=== PATIENT | female | born 1955 | race Caucasian/White ===

== ENCOUNTER → 2017-06-12 | Outpatient (CLI) | payer OTHER | LOC: M ADAMS 12:49 | PROVIDERS: ATTEND Physician Assistant Medical | DX: N30.01 Acute cystitis with hematuria (principal) ==

== ENCOUNTER → 2018-01-22 | Outpatient (REF) | payer OTHER ==
[2018-01-22 13:08] LABS: BASO # 0.1 10^3/uL (0.0-0.2); EOS # 0.3 10^3/uL (0.0-0.50); EOS % 3.9 % (0.0-3.0); HEMATOCRIT 36.5 % (36.0-47.0); HEMOGLOBIN 12.3 g/dl (12.0-15.5); IMMATURE GRANULOCYTE % 0.3 % (0-3.0); LYMPH # 2.2 10^3/uL (1.5-4.5); LYMPH % 30.2 % (24.0-44.0); MEAN CORPUSCULAR HGB CONC 33.7 g/dl (32.0-36.5); MEAN CORPUSCULAR VOLUME 91.9 fl (80.0-96.0); MONO # 0.5 10^3/uL (0.0-0.8); MONO % 6.9 % (0.0-5.0); NEUTROPHILS # 4.1 10^3/uL (1.8-7.7); NEUTROPHILS % 57.7 % (36.0-66.0); PLATELET COUNT, AUTOMATED 310 10^3/uL (150-450); RED BLOOD COUNT 3.97 10^6/uL (4.00-5.40); RED CELL DISTRIBUTION WIDTH 13.1 % (11.5-14.5); WHITE BLOOD COUNT 7.1 10^3/uL (4.0-10.0)
[2018-01-22 13:41] LABS: ALBUMIN 3.6 GM/DL (3.2-5.2); ALBUMIN/GLOBULIN RATIO 1.09 (1.00-1.93); ALKALINE PHOSPHATASE 95 U/L (45-117); ALT/SGPT 18 U/L (12-78); ANION GAP 7 MEQ/L (8-16); AST/SGOT 15 U/L (7-37); BILIRUBIN,TOTAL 0.3 MG/DL (0.2-1.0); BLOOD UREA NITROGEN 23 MG/DL (7-18); CARBON DIOXIDE LEVEL 29 MEQ/L (21-32); CHLORIDE LEVEL 108 MEQ/L (98-107); CHOLESTEROL LEVEL 264 MG/DL (<200); CHOLESTEROL RISK RATIO 2.613 (<5); CREATININE FOR GFR 0.76 MG/DL (0.55-1.30); GLOMERULAR FILTRATION RATE > 60.0 (>45); GLUCOSE, FASTING 85 MG/DL (70-100); HDL CHOLESTEROL 101 MG/DL (>40); LDL CHOLESTEROL 151.8 MG/DL (<100); NON-HDL-C 163 MG/DL; POTASSIUM SERUM 4.9 MEQ/L (3.5-5.1); SODIUM LEVEL 144 MEQ/L (136-145); TOTAL PROTEIN 6.9 GM/DL (6.4-8.2); TRIGLYCERIDES LEVEL 56 MG/DL (<150)
== END ==
LOC: M SFHCADAM 10:53
DX: Z00.00 Encounter for general adult medical examination without abnormal findings (principal)

== ENCOUNTER → 2018-03-04 | Outpatient (REF) | payer OTHER ==
[2018-03-05 14:38] LABS: HEP C VIRUS AB SCREEN MEDICARE 0.1 INDEX (<0.8)
== END ==
LOC: M SFHCADAM 17:24
DX: Z11.59 Encounter for screening for other viral diseases (principal)

== ENCOUNTER → 2018-09-01 | Outpatient (REF) | payer OTHER ==
[2018-09-01 20:24] LABS: BASO # 0.1 10^3/uL (0.0-0.2); BASO % 0.7 % (0.0-1.0); EOS # 0.3 10^3/uL (0.0-0.50); EOS % 3.7 % (0.0-3.0); HEMATOCRIT 40.3 % (36.0-47.0); HEMOGLOBIN 13.6 g/dl (12.0-15.5); LYMPH # 2.3 10^3/uL (1.5-4.5); LYMPH % 31.2 % (24.0-44.0); MEAN CORPUSCULAR HEMOGLOBIN 30.9 pg (27.0-33.0); MEAN CORPUSCULAR HGB CONC 33.7 g/dl (32.0-36.5); MEAN CORPUSCULAR VOLUME 91.6 fl (80.0-96.0); MONO # 0.5 10^3/uL (0.0-0.8); MONO % 7.2 % (0.0-5.0); NEUTROPHILS # 4.1 10^3/uL (1.8-7.7); NEUTROPHILS % 56.9 % (36.0-66.0); PLATELET COUNT, AUTOMATED 389 10^3/uL (150-450); WHITE BLOOD COUNT 7.3 10^3/uL (4.0-10.0)
[2018-09-01 20:32] LABS: ALBUMIN 3.9 GM/DL (3.2-5.2); ALT/SGPT 19 U/L (12-78); BILIRUBIN,TOTAL 0.3 MG/DL (0.2-1.0); BLOOD UREA NITROGEN 13 MG/DL (7-18); CALCIUM LEVEL 8.9 MG/DL (8.8-10.2); CARBON DIOXIDE LEVEL 28 MEQ/L (21-32); CHLORIDE LEVEL 105 MEQ/L (98-107); CREATININE FOR GFR 0.68 MG/DL (0.55-1.30); GLOMERULAR FILTRATION RATE > 60.0 (>45); GLUCOSE, FASTING 54 MG/DL (70-100); POTASSIUM SERUM 3.7 MEQ/L (3.5-5.1); SODIUM LEVEL 142 MEQ/L (136-145); TOTAL PROTEIN 7.4 GM/DL (6.4-8.2)
== END ==
LOC: M SFHCADAM 16:41
PROVIDERS: ATTEND Family Medicine
DX: R93.89 Abnormal findings on diagnostic imaging of other specified body structures (principal)

== ENCOUNTER → 2018-09-10 | Outpatient (CLI) | payer OTHER ==
[~2018-09-10] MED LIST: ISOVUE-370 76% 125ML VIAL (Q9967 PER ML) As Ordered ONE
--- NOTE | 2018-09-10 17:43 | REP ---
CT of the chest with IV contrast: Comparison is a 2017. The previously identified ground-glass density in the right upper lobe is no longer present, likely transient atelectasis. The 5.5 mm nodule in the right lower lobe is stable and unchanged and is on image 57. There are no other lung masses or nodule was. There are no acute infiltrates or pleural effusions. There is a soft tissue mass at the thoracic inlet, measuring approximately 22 mm transverse diameter by 30 mm craniocaudad posterolateral to the trachea on the left, left lateral to the esophagus, posterior to the left common carotid artery and medial to the left subclavian artery. This was likely present on the comparison study, but difficult to visualize as the comparison study was presented at lung windowing only. It does not appear significantly changed in size. Enlarged lymph node and thymoma are primary diagnostic considerations. There is no other mediastinal adenopathy or mass. There is no hilar or axillary adenopathy. The thoracic aorta is unremarkable. Cardiac size is normal. In the upper abdomen there is a 3.9 cm low-density mass posteriorly in the right lobe of the liver with enhancing vasculature at its periphery, possibly an hemangioma. MRI follow-up is recommended for confirmation. The visualized hepatic parenchyma is otherwise unremarkable. Visualized portions of the gallbladder, pancreas and spleen are unremarkable. There is no adrenal mass. Impression: The ground-glass density identified previously is no longer present, likely transient atelectasis. The 5.5 millimeter nodule in the right lower lobe is unchanged, therefore a category II lesion with probability of malignancy less than 1%. Annual follow-up surveillance of this nodule is recommended. There is a mediastinal mass as described. There is an hepatic mass as described. Electronically Signed by Shadi Green MD 09/10/2018 05:35 P
== END ==
LOC: M RAD 12:40
PROVIDERS: ATTEND Family Medicine
DX: R93.89 Abnormal findings on diagnostic imaging of other specified body structures (principal); R91.1 Solitary pulmonary nodule; R16.0 Hepatomegaly, not elsewhere classified
CPT/HCPCS: 71260; Q9967

== ENCOUNTER → 2019-04-14 | Outpatient (CLI) | payer OTHER ==
--- NOTE | 2019-04-14 07:54 | REP ---
Clinical: Hepatic hemangioma. Technique: Real time fountain scale ultrasound examination using curved array transducer. Findings: Liver demonstrates a 4.4 x 2.9 x 4.2 cm hyperechoic lesion in the posterior segment right lobe most compatible with hemangioma. Pancreas and gallbladder are normal. No biliary ductal dilatation is appreciated and the common bile duct measures 5.5 mm diameter. The right kidney is normal in reniform shape without hydronephrosis and measures 9.8 x 5.1 x 4.2 cm. Abdominal aorta normal. No ascites. Impression: Hepatic lesion most compatible with hemangioma by ultrasound evaluation. Electronically Signed by Horacio Rooney MD 04/14/2019 07:46 A
== END ==
LOC: M RAD 06:43
PROVIDERS: ATTEND Family Medicine
DX: K76.89 Other specified diseases of liver (principal); R10.11 Right upper quadrant pain

== ENCOUNTER 2019-08-18 11:18 | Day surgery (SDC) | payer OTHER ==
[~2019-08-18] VITALS: Ht 157.5 cm; Wt 52.6 kg
[~2019-08-18 11:18] MED LIST changes: -ISOVUE-370 76% 125ML VIAL (Q9967 PER ML) As Ordered ONE; +LIDOCAINE 2% INJ 100 MG/5 ML SDV (FOR ANES.) As Ordered ONE; +NON-325T5 PO; +NS 1,000 ML IV ONE
[2019-08-18] MEDS ORDERED: propofoL 200 MG/20 ML VIAL As Ordered ONE (11:28)
[2019-08-18] MEDS ORDERED: fentaNYL 100 MCG/2 ML INJECTION (J3010) As Ordered ONE (11:29)
--- NOTE | 2019-08-18 12:14 | ROOR ---
Patient Name: Joana Clements Procedure Date: 08/18/2019 12:02 PM Date of : 1955 Age: 63 Room: [facility] Gender: Female Note Status: Finalized Procedure: Upper GI endoscopy Indications: Epigastric abdominal pain Providers: Qasim PALOMARES MD Referring MD: Evita BRUCE DO Requesting Provider: Medicines: Monitored Anesthesia Care Complications: No immediate complications. Procedure: Pre-Anesthesia Assessment: - The heart rate, respiratory rate, oxygen saturations, blood pressure, adequacy of pulmonary ventilation, and response to care were monitored throughout the procedure. The Endoscope was introduced through the mouth, and advanced to the second part of duodenum. The upper GI endoscopy was accomplished without difficulty. The patient tolerated the procedure well. Findings: The esophagus was normal. The stomach was normal. The examined duodenum was normal. Impression: - Normal esophagus. - Normal stomach. - Normal examined duodenum. - No specimens collected. Recommendation: - Follow an antireflux regimen. - Observe patient's clinical course. Qasim Palomares MD Qasim PALOMARES MD 08/18/2019 12:14:11 PM Electronically signed by Qasim PALOMARES MD Number of Addenda: 0 Note Initiated On: 08/18/2019 12:02 PM Estimated Blood Loss: Estimated blood loss: none.
--- NOTE | 2019-08-18 12:37 | ROOR ---
Patient Name: Joana Clements Procedure Date: 08/18/2019 12:02 PM Date of : 1955 Age: 63 Room: [facility] Gender: Female Note Status: Finalized Procedure: Colonoscopy Indications: High risk colon cancer surveillance: Personal history of colonic polyps Providers: Qasim PALOMARES MD Referring MD: Evita BRUCE DO Requestcale[employer] Provider: Medicines: Monitored Anesthesia Care Complications: No immediate complications. Procedure: Pre-Anesthesia Assessment: - The heart rate, respiratory rate, oxygen saturations, blood pressure, adequacy of pulmonary ventilation, and response to care were monitored throughout the procedure. The Colonoscope was introduced through the anus and advanced to the cecum, identified by appendiceal orifice and ileocecal valve. The colonoscopy was performed without difficulty. The patient tolerated the procedure well. The quality of the bowel preparation was good. Findings: The perianal and digital rectal examinations were normal. Two sessile polyps were found in the sigmoid colon and hepatic flexure. The polyps were 4 to 5 mm in size. These polyps were removed with a cold snare. Resection and retrieval were complete. Small Internal Hemorrhoids. The digital rectal exam findings include decreased sphincter tone. Impression: - Two 4 to 5 mm polyps in the sigmoid colon and at the hepatic flexure, removed with a cold snare. Resected and retrieved. - Small Internal Hemorrhoids. - The examination was otherwise normal on direct and retroflexion views. Recommendation: - Repeat colonoscopy in 5 years for surveillance. Qasim Palomarse MD Qasim PALOMARES MD 08/18/2019 12:36:44 PM Electronically signed by Qasim PALOMARES MD Number of Addenda: 0 Note Initiated On: 08/18/2019 12:02 PM Estimated Blood Loss: Estimated blood loss: none.
[2019-08-18 13:00] VITALS: BP 150/76
== END 2019-08-18 13:10 | disposition home or self-care (01) ==
LOC: M OPP 11:18
PROVIDERS: ATTEND Internal Medicine Gastroenterology
DX: Z12.11 Encounter for screening for malignant neoplasm of colon (principal); Z86.010 Personal history of colon polyps; K63.5 Polyp of colon; K62.89 Other specified diseases of anus and rectum; K64.8 Other hemorrhoids; R10.13 Epigastric pain; Z79.899 Other long term (current) drug therapy; Z91.030 Bee allergy status; Z87.891 Personal history of nicotine dependence
CPT/HCPCS: 43235; 45385; 88305; J3010

== ENCOUNTER → 2019-12-01 | Outpatient (CLI) | payer OTHER ==
[~2019-12-01] MED LIST changes: -LIDOCAINE 2% INJ 100 MG/5 ML SDV (FOR ANES.) As Ordered ONE; -NS 1,000 ML IV ONE
--- NOTE | 2019-12-01 17:10 | REP ---
REASON: Pain. Mild degenerative changes are seen throughout the foot. There is no fracture. Electronically Signed by Jeffrey Wade DO 12/02/2019 11:12 A
--- NOTE | 2019-12-01 17:11 | REP ---
ANKLE: REASON FOR EXAM: Atraumatic pain. COMPARISON: No priors. FINDINGS: No acute fracture or destructive osseous lesion. The mortise is intact. Electronically Signed by Jeffrey Wade DO 12/02/2019 11:12 A
== END ==
LOC: M ADAMS 09:17
PROVIDERS: ATTEND Physician Assistant
DX: M25.572 Pain in left ankle and joints of left foot (principal); M19.072 Primary osteoarthritis, left ankle and foot

== ENCOUNTER 2019-12-20 13:17 | Emergency (ER) | payer OTHER ==
[~2019-12-20] VITALS: Ht 154.9 cm; Wt 53.2 kg
[2019-12-20 14:48] LABS: BLOOD UREA NITROGEN 24 MG/DL (7-18); CALCIUM LEVEL 9.6 MG/DL (8.8-10.2); CARBON DIOXIDE LEVEL 28 MEQ/L (21-32); CHLORIDE LEVEL 109 MEQ/L (98-107); CK-MB VALUE MASS 2.2 NG/ML (<3.6); CPK CREATINE PHOSPHOKINASE 101 U/L (26-192); CREATININE FOR GFR 0.74 MG/DL (0.55-1.30); GLOMERULAR FILTRATION RATE > 60.0 (>45); GLUCOSE, FASTING 79 MG/DL (70-100); MB/CK RELATIVE INDEX 2.18 (< OR =4); POTASSIUM SERUM 4.7 MEQ/L (3.5-5.1); SODIUM LEVEL 142 MEQ/L (136-145); TROPONIN I < 0.02 NG/ML (< 0.10)
[2019-12-20] MEDS ORDERED: NS 1,000 ML IV ONE (15:00)
[2019-12-20 15:56] VITALS: BP 159/85
--- NOTE | 2019-12-21 09:36 | ECGEPIP ---
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
== END 2019-12-20 15:58 | disposition home or self-care (01) ==
LOC: EDBD 13:17 → M ED 13:17
DX: T75.4XXA Electrocution, initial encounter (principal); Y92.89 Other specified places as the place of occurrence of the external cause; Y93.89 Activity, other specified; R00.1 Bradycardia, unspecified

== ENCOUNTER → 2020-05-23 | Outpatient (CLI) | payer OTHER ==
[~2020-05-23] MED LIST changes: +ACET-838 PO; -NON-325T5 PO
--- NOTE | 2020-05-23 09:00 | REP ---
INDICATION: HEMANGIOMA/ EPIGASTRIC PAIN COMPARISON: 04/14/2019 TECHNIQUE: Real time fountain scale ultrasound examination using curved array transducer. FINDINGS: Liver demonstrates 4.8 x 2.7 x 4.4 cm hyperechoic area in the posterior segment right lobe consistent with hemangioma. No further hepatic lesions are identified. Pancreas is incompletely evaluated due to interposed bowel gas. The gallbladder is normal and without gallstones, wall thickening, or pericholecystic fluid. No biliary ductal dilatation is appreciated and the common bile duct measures 4.0 mm diameter. Right kidney is normal in reniform shape without hydronephrosis and measures 9.5 x 3.8 x 3.6 cm. No ascites in the visualized right upper quadrant. Suggestions for small pericardial effusion incidentally noted. IMPRESSION: 1. Hyperdense hepatic lesion likely representing hemangioma and similar to prior examination. <Electronically signed by Horacio Rooney > 05/23/20 [id number]
== END ==
LOC: M RAD 07:44
PROVIDERS: ATTEND Internal Medicine Gastroenterology
DX: K76.89 Other specified diseases of liver (principal); D18.00 Hemangioma unspecified site; R10.13 Epigastric pain

== ENCOUNTER → 2020-06-19 | Outpatient (CLI) | payer OTHER ==
--- NOTE | 2020-06-19 13:50 | REP ---
INDICATION: LUNG SCREENING COMPARISON: 02/26/2018 TECHNIQUE: Axial noncontrast images from the thoracic inlet to the upper abdomen using low-dose lung screening technique (LDCT). FINDINGS: Lung pressley demonstrate minimal scattered and primarily biapical scarring similar to prior examination. Few small non calcified densities measuring up to 5 mm (right lower lobe image 56) as well as small calcified nodules remain stable. No consolidation, significant nodule or mass lesion identified. No pleural effusion. No pneumothorax. Tracheobronchial tree is patent. IMPRESSION: Lung-RADS category 2. Management recommendations include annual low-dose CT evaluation <Electronically signed by Horacio Rooney > 06/19/20 [id number]
== END ==
LOC: M RAD 12:58
PROVIDERS: ATTEND Family Medicine
DX: Z12.2 Encounter for screening for malignant neoplasm of respiratory organs (principal); R91.8 Other nonspecific abnormal finding of lung field

== ENCOUNTER → 2021-01-28 | Outpatient (CLI) | payer OTHER ==
[~2021-01-28] MED LIST changes: -ACET-838 PO; +ACET32TAB PO; +AUGM875T28 PO; +CARA1TAB6 PO; +OMEP40CA4 PO
== END ==
LOC: M WHC 14:24
PROVIDERS: ATTEND Family Medicine
DX: Z12.31 Encounter for screening mammogram for malignant neoplasm of breast (principal); Z80.0 Family history of malignant neoplasm of digestive organs; Z80.42 Family history of malignant neoplasm of prostate; R92.1 Mammographic calcification found on diagnostic imaging of breast

== ENCOUNTER 2021-05-25 17:55 | Inpatient (IN) | payer OTHER ==
[~2021-05-25] VITALS: Ht 154.9 cm; Wt 54.9 kg
[~2021-05-25 17:55] MED LIST changes: -AUGM875T28 PO; -CARA1TAB6 PO; -OMEP40CA4 PO
[2021-05-26 03:35] LABS: BASO # 0.1 10^3/uL (0.0-0.2); BASO % 0.2 % (0.0-1.0); HEMATOCRIT 41.6 % (36.0-47.0); HEMOGLOBIN 13.7 g/dl (12.0-15.5); LYMPH # 0.7 10^3/uL (1.5-5.0); LYMPH % 2.2 % (24.0-44.0); MEAN CORPUSCULAR HGB CONC 32.9 g/dl (32.0-36.5); MEAN CORPUSCULAR VOLUME 94.1 fl (80.0-96.0); MONO # 1.6 10^3/uL (0.0-0.8); MONO % 5.2 % (2.0-8.0); NEUTROPHILS # 28.3 10^3/uL (1.5-8.5); NEUTROPHILS % 91.3 % (36.0-66.0); PLATELET COUNT, AUTOMATED 393 10^3/uL (150-450); RED BLOOD COUNT 4.42 10^6/uL (4.00-5.40)
[2021-05-26 04:03] LABS: ALBUMIN 3.8 GM/DL (3.2-5.2); ALT/SGPT 19 U/L (12-78); BILIRUBIN,DIRECT 0.1 MG/DL (0.0-0.2); BILIRUBIN,TOTAL 0.4 MG/DL (0.2-1.0); BLOOD UREA NITROGEN 17 MG/DL (7-18); CALCIUM LEVEL 9.5 MG/DL (8.8-10.2); CARBON DIOXIDE LEVEL 25 MEQ/L (21-32); CHLORIDE LEVEL 105 MEQ/L (98-107); CREATININE FOR GFR 0.77 MG/DL (0.55-1.30); GLOMERULAR FILTRATION RATE > 60.0 (>45); GLUCOSE, FASTING 144 MG/DL (70-100); LIPASE 105 U/L (73-393); POTASSIUM SERUM 4.6 MEQ/L (3.5-5.1); SODIUM LEVEL 138 MEQ/L (136-145); TOTAL PROTEIN 7.8 GM/DL (6.4-8.2)
[2021-05-26] MEDS ORDERED: KETOROLAC 30 MG/ML 1ML VIAL IV ONE (06:55)
[2021-05-26] MEDS ORDERED: ONDANSETRON 4MG/2ML VIAL IV ONE (06:55)
[2021-05-26] MEDS ORDERED: NS 1,000 ML IV ONE (06:55)
[2021-05-26] MEDS ORDERED: ISOVUE-370 76% 100ML VIAL As Ordered ONE (07:02)
[2021-05-26] MEDS ORDERED: MORPHINE 4 MG/ML 1ML VIAL/SYRINGE (J2270) IV PRN (07:50)
--- OUTSIDE RECORDS SUMMARY | 2021-05-26 08:10 | CCD ---
Author Author [facility] Organization [facility] Address Unknown Phone Unavailable Support Name Relationship Address Phone BRYANT CHUNG Next Of Kin [address] [facility] [address] [place] [address] [facility] Next Of Kin [address] [place] [address] [facility] [address] Next Of Kin [phone] [place] [address] MARISOL CLEMENTS Next Of Kin [address] [place] [address] [place]* Next Of Kin [address] [place] [address] YOHANA CLEMENTS Next Of Kin [address] [place] [address] Marisol Clements ECON [address] [facility] [address] [place] [address] [phone] Re-disclosure Warning The records that you are about to access may contain information from federally-assisted alcohol or drug abuse programs. If such information is present, then the following federally mandated warning applies: This information has been disclosed to you from records protected by federal confidentiality rules (42 CFR part 2). The federal rules prohibit you from making any further disclosure of this information unless further disclosure is expressly permitted by the written consent of the person to whom it pertains or as otherwise permitted by 42 CFR part 2. A general authorization for the release of medical or other information is NOT sufficient for this purpose. The Federal rules restrict any use of the information to criminally investigate or prosecute any alcohol or drug abuse patient.The records that you are about to access may contain highly sensitive health information, the redisclosure of which is protected by Article 27-F of the [facility] Public Health law. If you continue you may have access to information: Regarding HIV / AIDS; Provided by facilities licensed or operated by the [facility] Office of Mental Health; or Provided by the [facility] Office for People With Developmental Disabilities. If such information is present, then the following [facility] mandated warning applies: This information has been disclosed to you from confidential records which are protected by state law. State law prohibits you from making any further disclosure of this information without the specific written consent of the person to whom it pertains, or as otherwise permitted by law. Any unauthorized further disclosure in violation of state law may result in a fine or long-term sentence or both. A general authorization for the release of medical or other information is NOT sufficient authorization for further disc losure. Family History Family Member Name Family Member Gender Family Member Status Date o f Status Description Data Source(s) Unknown Unknown Problem MEDENT ([facility]) Unknown Unknown Problem [facility] ([facility]) Unknown Unknown Problem [facility] Unknown Unknown Problem [facility] Unknown Unknown Problem [facility] ([facility] Encounters Encounter Providers Location Date Indications Data Source(s ) Unknown [address] [facility] [address] [place] [address] 02/08/2021 12:00:00 AM EDT eCW1 ([facility]) Outpatient [address] [facility] [address] [address] 12/21/2020 12:00:00 AM EDT eCW1 ([facility]) Unknown [address] [facility] [address] [address] 12/21/2020 12:00:00 AM EDT eCW1 ([facility]) Unknown [address] [facility] [address] [address] 06/11/2020 12:00:00 AM EST eCW1 ([facility]) Unknown [address] [facility] [address] [address] 05/10/2020 12:00:00 AM EST eCW1 ([facility]) Immunizations Vaccine Date Status Description Data Source(s) COVID-19 VACCINE Moderna 10/23/2020 12:00:00 AM EDT completed [facility] Vaccine Series Complete: YESThis Data wa s Submitted to [facility] Via [employer]. COVID-19 VACC,MRNA(MODERNA)/PF 09/22/2020 12:00:00 AM EDT completed [facility] COVID-19 VACCINE Moderna 09/22/2020 12:00:00 AM EDT completed [facility] Vaccine Series Complete: NOThis Data was Submitted to [facility] Via [employer]. INFLUENZA VIRUS VACCINE QUADRIVALENT 2019- (6 MOS AN D UP) 05/06/2020 12:00:00 AM EST completed [facility] Medications Medication Brand Name Start Date Product Form Dose Route Admi nistrative Instructions Pharmacy Instructions Status Indications Reaction Description Data Source(s) 60 mcg (15 mcg x 4)/0.5 mL 04/08/2021 12:00:00 AM EDT syring e 0 INJECT DIRECTED INJECT DIRECTED SOLD: 04/08/2021 Imag[facility] Insurance Providers Payer name Policy type / Coverage type Policy ID Covered green party ID Covered green party's relationship to albarran Policy Albarran Plan Information [id number] Medigap Part B [id number] Self [id number] [place] [employer] Workers Compensation [id number] Self [id number] [place] [employer] Workers Compensation [id number] Self N[employer] Workers Compensation [id number] Self [id number] [facility] Community Plan Commercial [id number] Self [id number] [facility] [id number] [facility] [id number] S 1 [id number] ANSI-Medicaid [id number] ANSI-Commercial [id number] ANSI-Medicaid [id number] ANSI-Commercial [id number] ANSI-Commercial [id number] ANSI-Medicaid [id number] ANSI-Medicaid [id number] ANSI-Commercial [id number] ANSI-Commercial [id number] ANSI-Medicaid [id number] [facility] [id number] ANSI-Medicaid [id number] ANSI-Commercial [id number] ANSI-Medicaid [id number] ANSI-Medicaid [id number] ANSI-Commercial [id number] OTHER WORKERS COMPENSATION [id number] SP [id number] [facility] Health Maintenance Organization ([facility]) [id number] Self [id number] [facility] Health Maintenance Organization ([facility]) [id number] Self [id number] [facility] Health Maintenance Organization ([facility]) [id number] Self [id number] [facility] Health Maintenance Organization ([facility]) [id number] Self [facility] Commercial [id number] Self SELF PAY UNAVAILABLE SP UNAVAILA BLE ANSI-Commercial [id number] [facility] COMMUNITY PLAN MCDO [id number] SP [id number] [facility]) O [id number] S [id number] [employer] CLAIM ADMIN WORK COMP [id number] SP [id number] [facility] [id number] SP [id number] ANSI-Commercial [id number] Problems, Conditions, and Diagnoses Code Display Name Description Problem Type Effective Dates Data Source(s) H91.93 [id number] Hearing difficulty of both ears Problem 12/21/2020 12:00:00 AM EDT eCW1 ([facility]) Surgeries/Procedures No Information Results No Information Social History Code Duration Value Status Description Data Source(s ) Smoking 02/15/2021 12:00:00 AM EDT Former Smoker completed Former Smoker eCW1 ([facility]) Smoking 12/21/2020 12:00:00 AM EDT Former Smoker completed Former Smoker eCW1 ([facility]) Smoking 12/21/2020 12:00:00 AM EDT Former Smoker completed Former Smoker eCW1 ([facility]) Vital Signs ID Date Data Source UNK Name Value Range Interpretation Code Description Data Source(s) Body weight 114.4 [lb_av] 114.4 [lb_av] eCW1 ([facility]) Body height 61.5 [in_i] 61.5 [in_i] eCW1 ([facility]placed by [facility]) Body mass index (BMI) [Ratio] 21.26 kg/m2 21.26 kg/m2 W1 ([facility]) Heart rate 63 /min 63 /min eCW1 ([facility]) Respiratory rate 18 /min 18 /min eCW1 ([facility]) Body temperature 99.0 [degF] 99.0 [degF] eCW1 ( [facility]) Systolic blood pressure 118 mm[Hg] 118 mm[Hg] e CW1 ([facility]) Diastolic blood pressure 72 mm[Hg] 72 mm[Hg] eCW1 ([facility]) Systolic blood pressure 140 mm[Hg] 140 mm[Hg] M EDENT ([facility], ) Diastolic blood pressure 82 mm[Hg] 82 mm[Hg] MEDGEM ([facility], ) Body height 62 [in_i] 62 [in_i] [facility] 5'2" Body weight 118.00 [lb_av] 118.00 [lb_av] [facility] ([facility]) Body mass index (BMI) [Ratio] 21.6 kg/m2 21.6 k g/m2 [facility] ([facility]) [place] body weight 110 [lb_av] 110 [lb_av] [facility] ([facility]) Body weight 53.525 kg 53.525 kg [facility] ([facility]) Body surface area Derived from formula 1.53 m2 1.53 m2 [facility] ([facility])
--- NOTE | 2021-05-26 08:25 | REPVR ---
PROCEDURE INFORMATION: Exam: CT Abdomen And Pelvis With Contrast Exam date and time: 05/26/2021 7:55 AM Age: 65 years old Clinical indication: Abdominal pain; Generalized; Additional info: Abd pain, peritonitis signs, leukocytosis TECHNIQUE: Imaging protocol: Computed tomography of the abdomen and pelvis with contrast. Radiation optimization: All CT scans at this facility use at least one of these dose optimization techniques: automated exposure control; mA and/or kV adjustment per patient size (includes targeted exams where dose is matched to clinical indication); or iterative reconstruction. Contrast material: ISOVUE 370; Contrast volume: 100 ml; Contrast route: INTRAVENOUS (IV); COMPARISON: LIVER US 05/23/2020 8:50 AM (report not provided) FINDINGS: Lungs: There are minor areas of scarring at the lung bases. Liver: The liver contains a 4.2 x 3.3 cm predominantly hypodense lesion in the right lobe with some peripheral nodular enhancement, corresponding to an echogenic lesion on the ultrasound, possibly hemangioma, but indeterminate. It also demonstrates mild fat along the falciform ligament. Gallbladder and bile ducts: No gallstones are evident, but ultrasound would be more sensitive. No gross biliary ductal dilatation. Pancreas: Normal. No ductal dilation. Spleen: Normal. No splenomegaly. Adrenal glands: Normal. No mass. Kidneys and ureters: Normal. No hydronephrosis. Stomach and bowel: The unopacified small bowel is not significantly distended to suggest obstruction. There is wall thickening involving the 2nd and 3rd portions of the duodenum with mild surrounding confluent fluid and fatty haziness. Along the medial aspect here is a collection of fluid and gas, apparently contiguous with the lumen, measuring approximately 2.6 x 3.7 x 3.0 cm, most suggestive of a contained perforation. There is no extension of extraluminal gas outside this collection. The large bowel is grossly unremarkable in appearance. Appendix: The appendix appears normal. Intraperitoneal space: No free air or significant free fluid. Vasculature: The abdominal aorta is nonaneurysmal. Atherosclerotic vascular calcifications are noted. Lymph nodes: Unremarkable. No enlarged lymph nodes. Urinary bladder: Unremarkable. Reproductive: No gross adnexal abnormality is apparent, but ultrasound would be more appropriate in this regard. Bones/joints: Degenerative changes involve the spine. Soft tissues: Unremarkable. IMPRESSION: 1. Wall thickening of the 2nd and 3rd portions of the duodenum with surrounding inflammatory change and contiguous with a collection of fluid and gas, suggestive of contained perforation. 2. 4.2 cm hepatic lesion, possibly hemangioma, but indeterminate. Recommend further evaluation with liver MRI. Electronically signed by: Shayne Bishop On 05/26/2021 08:24:42 AM
[2021-05-26] MEDS ORDERED: PIPERACILLIN/TAZOBACTAM SOD 3.375 GM in D5W MINI-BAG PLUS 50 ML IV ONE (08:55)
[2021-05-26] MEDS ORDERED: PANTOPRAZOLE 40MG VIAL (C9113 PER 1) IV SCH (09:00)
[2021-05-26 10:17] LABS: RSV AMPLIFICATION NEGATIVE (NEGATIVE)
[2021-05-26] MEDS ORDERED: MORPHINE 2 MG/ML 1ML VIAL (J2270) IV PRN ×2 (11:10)
--- OUTSIDE RECORDS SUMMARY | 2021-05-26 11:32 | CCD ---
Author Author [facility] Organization [facility] Address Unknown Phone Unavailable Support Name Relationship Address Phone BRYANT CHUNG Next Of Kin [phone] [facility] [address] [place] [address] [facility] Next Of Kin [phone] [place] [address] [facility] [address] Next Of Kin [phone] [place] [address] MARISOL CLEMENTS Next Of Kin [address] [facility] [address] [place] [address] [place]* Next Of Kin [address] [place] [address] YOHANA CLEMENTS Next Of Kin [address] [facility] [address] [place] [address] Marisol Clements ECON [address] [facility] [address] [place] [address] [phone] Re-disclosure Warning The records that you are [...] is protected by Article 27-F of the [facility] Public Health law. If you continue you may have access to information: Regarding HIV / AIDS; Provided by facilities licensed or operated by the [facility] Office of Mental Health; or Provided by the [facility] Office for People With Developmental Disabilities. If such information is present, then the following [facility] mandated warning applies: This information has been [...] law may result in a fine or longterm sentence or both. A general authorization for [...] Date Indications Data Source(s ) Unknown [address] [facility] [address] Y [address] 02/08/2021 12:00:00 AM EDT eCW1 ([facility]) Outpatient [address] [facility] [address] [address] 12/21/2020 12:00:00 AM EDT eCW1 ([facility]) Unknown [address] [facility] [address] [address] 12/21/2020 12:00:00 AM EDT eCW1 ([facility]) Unknown [address] [facility] [address] [address] 06/11/2020 12:00:00 AM EST eCW1 ([facility]) Unknown [address] [facility] [address] [address] 05/10/2020 12:00:00 AM EST eCW1 ([facility]) Immunizations Vaccine Date Status Description Data Source(s) COVID-19 VACCINE Moderna 10/23/2020 12:00:00 AM EDT completed [facility] Vaccine Series Complete: YESThis Data wa s Submitted to [facility] Via [employer]. COVID-19 VACC,MRNA(MODERNA)/PF 09/22/2020 12:00:00 AM EDT completed [facility] COVID-19 VACCINE Moderna 09/22/2020 12:00:00 AM EDT completed [facility] Vaccine Series Complete: NOThis Data was Submitted to [facility] Via [employer]. INFLUENZA VIRUS VACCINE QUADRIVALENT 2019- (6 MOS AN D UP) 05/06/2020 12:00:00 AM EST completed [facility] Medications Medication Brand Name Start Date Product Form Dose Route Admi nistrative Instructions Pharmacy Instructions Status Indications Reaction Description Data Source(s) 60 mcg (15 mcg x 4)/0.5 mL 04/08/2021 12:00:00 AM EDT syring e 0 INJECT DIRECTED INJECT DIRECTED SOLD: 04/08/2021 [employer] Insurance Providers Payer name Policy type / Coverage type Policy ID Covered constitution party ID Covered constitution party's relationship to albarran Policy Albarran Plan Information [id number] [employer] Medigap Part B [id number] Self [id number] [place] Comp Workers Compensation [id number] Self [id number] [place] [employer] Workers Compensation [id number] Self Nca Comp Workers Compensation [id number] Self [id number] [facility] Community Plan Commercial [id number] Self [id number] [facility] [id number] [facility] [id number] S 1 [id number] ANSI-Medicaid [id number] ANSI-Commercial [id number] ANSI-Medicaid [id number] ANSI-Commercial [id number] ANSI-Commercial [id number] ANSI-Medicaid [id number] ANSI-Medicaid [id number] ANSI-Commercial [id number] ANSI-Commercial [id number] ANSI-Medicaid [id number] [facility] [id number] ANSI-Medicaid [id number] ANSI-Commercial [id number] ANSI-Medicaid [id number] ANSI-Medicaid [id number] ANSI-Commercial [id number] OTHER WORKERS COMPENSATION [id number] SP [id number] [facility] ([facility] [id number] Self [id number] [facility] ([facility]) [id number] Self [id number] [facility] ([facility] [id number] Self [id number] [facility] ([facility]) [id number] Self [facility] Commercial [id number] Self SELF PAY UNAVAILABLE SP UNAVAILA BLE ANSI-Commercial [id number] [facility] COMMUNITY PLAN MCDO [id number] SP [id number] [facility](MCAID) O [id number] S [id number] [employer] CLAIM ADMIN WORK COMP [id number] SP [id number] [facility] [id number] SP [id number] ANSI-Commercial [id number] Problems, Conditions, and Diagnoses Code Display Name Description Problem Type Effective Dates Data Source(s) H91.93 307553542 Hearing difficulty of both ears Problem 12/21/2020 12:00:00 AM EDT eCW1 ([facility]) Surgeries/Procedures No Information Results No Information Social History Code Duration Value Status Description Data Source(s ) Smoking 02/15/2021 12:00:00 AM EDT Former Smoker completed Former Smoker eCW1 ([facility]) Smoking 12/21/2020 12:00:00 AM EDT Former Smoker completed Former Smoker eCW1 ([facility]) Smoking 12/21/2020 12:00:00 AM EDT Former Smoker completed Former Smoker eCW1 ([facility]) Vital Signs ID Date Data Source UNK Name Value Range Interpretation Code Description Data Source(s) Body weight 114.4 [lb_av] 114.4 [lb_av] eCW1 ([facility]) Body mass index (BMI) [Ratio] 21.26 kg/m2 21.26 kg/m2 eCW1 ([facility]) Body height 61.5 [in_i] 61.5 [in_i] eCW1 ([facility]) Heart rate 63 /min 63 /min eCW1 ([facility]) Respiratory rate 18 /min 18 /min eCW1 ([facility]) Body temperature 99.0 [degF] 99.0 [degF] eCW1 ( [facility]) Systolic blood pressure 118 mm[Hg] 118 mm[Hg] e CW1 ([facility]) Diastolic blood pressure 72 mm[Hg] 72 mm[Hg] eCW1 ([facility]) Systolic blood pressure 140 mm[Hg] 140 mm[Hg] M EDENT ([facility], ) Diastolic blood pressure 82 mm[Hg] 82 mm[Hg] [facility] ([facility], ) Body height 62 [in_i] 62 [in_i] [facility] ([facility]) 5'2" Body weight 118.00 [lb_av] 118.00 [lb_av] [facility] ([facility]) Body mass index (BMI) [Ratio] 21.6 kg/m2 21.6 k g/m2 [facility] ([facility]) [place] body weight 110 [lb_av] 110 [lb_av] [facility] ([facility]) Body weight 53.525 kg 53.525 kg [facility] ([facility]) Body surface area Derived from formula 1.53 m2 1.53 m2 [facility] ([facility])
[2021-05-26] MEDS ORDERED: HOME MED LIST COMPLETE! XX SCH (11:35)
[2021-05-26] MEDS: LR 1,000 ML IV SCH ×2 (12:02→22:15)
[2021-05-26 14:00] VITALS: BP_SYST 117; BP_SYST 131; BP_DIAS 62; BP_DIAS 63
[2021-05-26] MEDS: ONDANSETRON 4MG/2ML VIAL IV PRN (15:20)
[2021-05-26] MEDS: KETOROLAC 30 MG/ML 1ML VIAL IV PRN (15:21)
[2021-05-26] MEDS: PIPERACILLIN/TAZOBACTAM SOD 3.375 GM in D5W MINI-BAG PLUS 50 ML IV SCH ×2 (15:21→22:15)
[2021-05-26] MEDS: SUCRALFATE SUSP 1GM/10ML UD NG SCH ×2 (18:00→23:32)
[2021-05-26 22:00] VITALS: BP 110/55
[2021-05-26] MEDS: PANTOPRAZOLE 40MG VIAL (C9113 PER 1) IV SCH (22:15)
[2021-05-27] MEDS: KETOROLAC 30 MG/ML 1ML VIAL IV PRN ×3 (03:00→21:51)
[2021-05-27] MEDS: PIPERACILLIN/TAZOBACTAM SOD 3.375 GM in D5W MINI-BAG PLUS 50 ML IV SCH ×4 (03:32→21:09)
[2021-05-27] MEDS: LR 1,000 ML IV SCH ×3 (03:48→21:08)
[2021-05-27] MEDS: SUCRALFATE SUSP 1GM/10ML UD NG SCH ×3 (05:40→18:05)
[2021-05-27 06:00] VITALS: BP 99/51
[2021-05-27] MEDS: PANTOPRAZOLE 40MG VIAL (C9113 PER 1) IV SCH ×2 (08:57→21:09)
[2021-05-27 09:07] LABS: HEMATOCRIT 33.5 % (36.0-47.0); MEAN CORPUSCULAR HEMOGLOBIN 30.8 pg (27.0-33.0); MEAN CORPUSCULAR HGB CONC 32.8 g/dl (32.0-36.5); MEAN CORPUSCULAR VOLUME 93.8 fl (80.0-96.0); PLATELET COUNT, AUTOMATED 334 10^3/uL (150-450); RED BLOOD COUNT 3.57 10^6/uL (4.00-5.40); WHITE BLOOD COUNT 19.4 10^3/uL (4.0-10.0)
--- NOTE | 2021-05-27 10:36 | HPE ---
HISTORY AND PHYSICAL DATE OF ADMISSION: 05/26/2021 BRIEF HISTORY OF PRESENT ILLNESS: The patient is a 65-year-old female who had abdominal pain for at least 24 to 36 hours prior to admission. It was midepigastric area, radiating into her back. She had severe pain and underwent evaluation in the emergency room which revealed a perforation in the duodenum and it appears to be in the third portion of the duodenum adjacent to the pancreas and it was contained perforation. I was asked to evaluate her/admit her for hospitalization/intervention care as needed. PAST MEDICAL HISTORY: Significant for a history of arthritis, history of anxiety, history of pulmonary nodule (being followed), history of liver hemangioma, history of carpal tunnel release, history of tubal ligation, history of hand surgery. MEDICATIONS: None. ALLERGIES: Bee venom. PHYSICAL EXAMINATION: GENERAL: Reveals a frail, 65-year-old female who looks stated age. HEENT: Unremarkable. NECK: Supple without adenopathy. LUNGS: Clear to auscultation anteriorly, diminished posteriorly. HEART: Regular. ABDOMEN: Significantly tender in the epigastric area with tenderness, guarding and rebound. The lower abdomen is without peritoneal signs. She is mildly distended but no generalized peritonitis is appreciated. LABORATORY DATA: Laboratory evaluation reveals an elevated white count of 31,000 and normal liver function tests. IMPRESSION/PLAN: The patient has a contained perforation of the duodenum although at this point it is hard to know if this is a duodenal diverticulum with diverticulitis/perforation or whether this is a duodenal ulcer with perforation. Given its location in the third portion, it is a somewhat unusual location for a duodenal ulcer. That is why I am wondering if this may be more likely a duodenal diverticulum. In any case since this is contained and its location being nonamenable to typical Dario patch/ulcer repair, I would recommend that we proceed with NPO, NG tube, IV fluids and antibiotics empirically in case this is infectious associated.
--- NOTE | 2021-05-27 10:41 | IPNPDOC ---
Text Note Date of Service The patient was seen on 05/27/21. NOTE SUBJECTIVE: Patient is a 65 year old female presenting with perforated duodenal ulcer. Patient was seen today in no acute distress. States that she has been passing gas and is still having some abdominal pain. Pain well controlled with medications. REVIEW OF SYSTEMS: General: denies fevers, chills HEENT: denies headaches Cardiovascular: denies chest pain Respiratory: denies shortness of breath, cough GI: +pain in abdomen : denies pain with urination Extremities: denies swelling in extremities PHYSICAL EXAM: Vitals: See below General: in no acute distress HEENT: NCAT; moist mucous membranes; NG tube in place NECK: supple CARDIAC: Regular rate and rhythm, S1 and S2; no murmurs appreciated LUNGS: CTA b/l; no wheezes, rhonchi, rales noted ABDOMEN: Soft, nondistended; tenderness to soft palpation in all 4 quadrants especially the upper quadrants EXTREMITIES: no pitting edema b/l lower extremities IMAGING: CT ab/pelvis 05/26: "1. Wall thickening of the 2nd and 3rd portions of the duodenum with surrounding inflammatory change and contiguous with a collection of fluid and gas, suggestive of contained perforation. 2. 4.2 cm hepatic lesion, possibly hemangioma, but indeterminate. Recommend further evaluation with liver MRI." ASSESSMENT/PLAN: Patient is a 65 year old female presenting with perforated duodenal ulcer. - downtrending WBC from 31->19 today; continue to monitor with labs; continue IV abx - continue pain control - continue NPO, NG tube, PPI and sucralfate GME ATTESTATION My faculty preceptor for this patient encounter was physically present during the encounter and was fully available. All aspects of the patient interview, examination, medical decision making process, and medical care plan development were reviewed and approved by the faculty preceptor. The faculty preceptor is aware and concurs with the plan as stated in the body of this note and will attest to such by his/her cosignature. VS,Fishbone, I+O VS, Fishbone, I+O Laboratory Tests 05/27/21 08:46 Vital Signs Date Time Temp Pulse Resp B/P (MAP) Pulse Ox O2 Delivery O2 Flow Rate FiO2 05/27/21 06:00 99.1 92 18 99/51 (67) 97 Room Air I&O- Last 24 Hours up to 6 AM 05/27/21 06:00 Intake Total 275 ml Output Total 200 ml Balance 75 ml Sandra Simpson DO May 27, 2021 10:41
[2021-05-27 10:50] LABS: ALBUMIN 2.6 GM/DL (3.2-5.2); ALT/SGPT 13 U/L (12-78); BILIRUBIN,TOTAL 0.6 MG/DL (0.2-1.0); BLOOD UREA NITROGEN 16 MG/DL (7-18); CALCIUM LEVEL 8.4 MG/DL (8.8-10.2); CARBON DIOXIDE LEVEL 26 MEQ/L (21-32); CHLORIDE LEVEL 106 MEQ/L (98-107); GLOMERULAR FILTRATION RATE > 60.0 (>45); GLUCOSE, FASTING 85 MG/DL (70-100); LIPASE 370 U/L (73-393); SODIUM LEVEL 139 MEQ/L (136-145); TOTAL PROTEIN 5.8 GM/DL (6.4-8.2)
[2021-05-27 14:00] VITALS: BP 118/62
[2021-05-27] MEDS: ONDANSETRON 4MG/2ML VIAL IV PRN (18:17)
[2021-05-27 22:00] VITALS: BP 144/66
[2021-05-28] MEDS: SUCRALFATE SUSP 1GM/10ML UD NG SCH ×5 (00:19→23:42)
[2021-05-28] MEDS: PIPERACILLIN/TAZOBACTAM SOD 3.375 GM in D5W MINI-BAG PLUS 50 ML IV SCH ×4 (03:40→21:26)
[2021-05-28 06:06] LABS: HEMATOCRIT 30.1 % (36.0-47.0); MEAN CORPUSCULAR HEMOGLOBIN 31.1 pg (27.0-33.0); MEAN CORPUSCULAR HGB CONC 33.2 g/dl (32.0-36.5); MEAN CORPUSCULAR VOLUME 93.5 fl (80.0-96.0); PLATELET COUNT, AUTOMATED 284 10^3/uL (150-450); RED BLOOD COUNT 3.22 10^6/uL (4.00-5.40); WHITE BLOOD COUNT 14.7 10^3/uL (4.0-10.0)
[2021-05-28 06:28] VITALS: BP 125/62
[2021-05-28 06:34] LABS: ALT/SGPT 13 U/L (12-78); BILIRUBIN,TOTAL 0.5 MG/DL (0.2-1.0); BLOOD UREA NITROGEN 18 MG/DL (7-18); CALCIUM LEVEL 8.8 MG/DL (8.8-10.2); CARBON DIOXIDE LEVEL 25 MEQ/L (21-32); CHLORIDE LEVEL 107 MEQ/L (98-107); GLOMERULAR FILTRATION RATE > 60.0 (>45); GLUCOSE, FASTING 75 MG/DL (70-100); LIPASE 213 U/L (73-393); POTASSIUM SERUM 3.2 MEQ/L (3.5-5.1); SODIUM LEVEL 140 MEQ/L (136-145)
[2021-05-28] MEDS: PANTOPRAZOLE 40MG VIAL (C9113 PER 1) IV SCH ×2 (08:00→21:26)
[2021-05-28] MEDS: KETOROLAC 30 MG/ML 1ML VIAL IV PRN ×2 (08:01→18:41)
[2021-05-28] MEDS: LR 1,000 ML IV SCH ×2 (08:01→11:42)
--- NOTE | 2021-05-28 09:01 | IPNPDOC ---
Text Note Date of Service The patient was seen on 05/28/21. NOTE SUBJECTIVE: Patient is a 65 year old female presenting with perforated duodenal ulcer. Patient was seen today in no acute distress. She states that she is still having abdominal pain which is well controlled. Pain today seems to be around the epigastric area at rest. REVIEW OF SYSTEMS: General: denies fevers, chills HEENT: denies headaches Cardiovascular: denies chest pain Respiratory: denies shortness of breath, cough GI: +pain in abdomen : denies pain with urination Extremities: denies swelling in extremities PHYSICAL EXAM: Vitals: See below General: in no acute distress HEENT: NCAT; moist mucous membranes; NG tube in place NECK: supple CARDIAC: Regular rate and rhythm, S1 and S2; no murmurs appreciated LUNGS: CTA b/l; no wheezes, rhonchi, rales noted ABDOMEN: Soft, nondistended; moderate tenderness to soft palpation in all 4 quadrants especially epigastric area EXTREMITIES: no pitting edema b/l lower extremities IMAGING: CT ab/pelvis 05/26: "1. Wall thickening of the 2nd and 3rd portions of the duodenum with surrounding inflammatory change and contiguous with a collection of fluid and gas, suggestive of contained perforation. 2. 4.2 cm hepatic lesion, possibly hemangioma, but indeterminate. Recommend further evaluation with liver MRI." ASSESSMENT/PLAN: Patient is a 65 year old female presenting with perforated duodenal ulcer. - downtrending WBC from 31->19 -> 14.7 today; continue to monitor with labs; continue IV abx - continue pain control - continue NPO, NG tube, PPI and sucralfate GME ATTESTATION My faculty preceptor for this patient encounter was physically present during the encounter and was fully available. All aspects of the patient interview, examination, medical decision making process, and medical care plan development were reviewed and approved by the faculty preceptor. The faculty preceptor is aware and concurs with the plan as stated in the body of this note and will attest to such by his/her cosignature. VS,Fishbone, I+O VS, Fishbone, I+O Laboratory Tests 05/28/21 05:33 Vital Signs Date Time Temp Pulse Resp B/P (MAP) Pulse Ox O2 Delivery O2 Flow Rate FiO2 05/28/21 06:28 98.6 64 18 125/62 (83) 96 Room Air I&O- Last 24 Hours up to 6 AM 05/28/21 06:00 Intake Total 680 ml Output Total 600 ml Balance 80 ml Sandra Simpson DO May 28, 2021 09:01
[2021-05-28] MEDS: KCL 10MEQ/100ML SWI (KRUN) 10 MEQ in IV 1 EA IV SCH ×4 (10:11→14:12)
[2021-05-28 14:00] VITALS: BP 154/71
[2021-05-28] MEDS: ONDANSETRON 4MG/2ML VIAL IV PRN (18:41)
[2021-05-28 22:00] VITALS: BP 143/75
[2021-05-29] MEDS: LR 1,000 ML IV SCH ×4 (01:35→20:00)
[2021-05-29] MEDS: PIPERACILLIN/TAZOBACTAM SOD 3.375 GM in D5W MINI-BAG PLUS 50 ML IV SCH ×4 (02:37→21:08)
[2021-05-29] MEDS: SUCRALFATE SUSP 1GM/10ML UD NG SCH ×3 (05:28→17:54)
[2021-05-29 06:00] VITALS: BP 146/73
[2021-05-29 06:15] LABS: HEMATOCRIT 31.9 % (36.0-47.0); HEMOGLOBIN 10.5 g/dl (12.0-15.5); MEAN CORPUSCULAR HEMOGLOBIN 30.5 pg (27.0-33.0); MEAN CORPUSCULAR HGB CONC 32.9 g/dl (32.0-36.5); MEAN CORPUSCULAR VOLUME 92.7 fl (80.0-96.0); PLATELET COUNT, AUTOMATED 322 10^3/uL (150-450); RED BLOOD COUNT 3.44 10^6/uL (4.00-5.40); WHITE BLOOD COUNT 12.4 10^3/uL (4.0-10.0)
[2021-05-29 06:47] LABS: ALBUMIN 2.2 GM/DL (3.2-5.2); ALT/SGPT 15 U/L (12-78); BILIRUBIN,TOTAL 0.8 MG/DL (0.2-1.0); BLOOD UREA NITROGEN 17 MG/DL (7-18); CALCIUM LEVEL 7.7 MG/DL (8.8-10.2); CARBON DIOXIDE LEVEL 23 MEQ/L (21-32); CHLORIDE LEVEL 104 MEQ/L (98-107); CREATININE FOR GFR 0.54 MG/DL (0.55-1.30); GLOMERULAR FILTRATION RATE > 60.0 (>45); GLUCOSE, FASTING 59 MG/DL (70-100); LIPASE 110 U/L (73-393); POTASSIUM SERUM 3.4 MEQ/L (3.5-5.1); SODIUM LEVEL 139 MEQ/L (136-145); TOTAL PROTEIN 5.7 GM/DL (6.4-8.2)
[2021-05-29] MEDS: PANTOPRAZOLE 40MG VIAL (C9113 PER 1) IV SCH ×2 (08:32→21:08)
[2021-05-29] MEDS: KETOROLAC 30 MG/ML 1ML VIAL IV PRN (08:35)
[2021-05-29 09:00] VITALS: BP 144/73
--- NOTE | 2021-05-29 09:29 | IPNPDOC ---
Text Note Date of Service The patient was seen on 05/29/21. NOTE SUBJECTIVE: Patient is a 65 year old female presenting with perforated duodenal ulcer. Patient was seen today in no acute distress. She states that she is still having abdominal pain that at times is 5/10 pain which is well controlled with medications. Patient says that her belly feels better and she is able to turn from side to side in when sleeping. REVIEW OF SYSTEMS: General: denies fevers, chills HEENT: denies headaches Cardiovascular: denies chest pain Respiratory: denies shortness of breath, cough GI: +pain in abdomen : denies pain with urination Extremities: denies swelling in extremities PHYSICAL EXAM: Vitals: See below General: in no acute distress HEENT: NCAT; moist mucous membranes; NG tube in place NECK: supple CARDIAC: Regular rate and rhythm, S1 and S2; no murmurs appreciated LUNGS: CTA b/l; no wheezes, rhonchi, rales noted ABDOMEN: Soft, nondistended; less tenderness to soft palpation in all 4 quadrants especially epigastric area than yesterday EXTREMITIES: no pitting edema b/l lower extremities IMAGING: CT ab/pelvis 05/26: "1. Wall thickening of the 2nd and 3rd portions of the duodenum with surrounding inflammatory change and contiguous with a collection of fluid and gas, suggestive of contained perforation. 2. 4.2 cm hepatic lesion, possibly hemangioma, but indeterminate. Recommend further evaluation with liver MRI." ASSESSMENT/PLAN: Patient is a 65 year old female presenting with perforated duodenal ulcer. - downtrending WBC 14.7 -> 12.4 today; continue to monitor with labs; continue IV abx - continue pain control - continue NPO, NG tube, PPI and sucralfate - tomorrow morning Upper GI series to further eval GME ATTESTATION My faculty preceptor for this patient encounter was physically present during the encounter and was fully available. All aspects of the patient interview, examination, medical decision making process, and medical care plan development were reviewed and approved by the faculty preceptor. The faculty preceptor is aware and concurs with the plan as stated in the body of this note and will attest to such by his/her cosignature. VS,Fishbone, I+O VS, Fishbone, I+O Laboratory Tests 05/29/21 05:28 Vital Signs Date Time Temp Pulse Resp B/P (MAP) Pulse Ox O2 Delivery O2 Flow Rate FiO2 05/29/21 06:00 98.7 63 19 146/73 (97) 96 Room Air I&O- Last 24 Hours up to 6 AM 05/29/21 06:00 Intake Total 0 ml Output Total 0 ml Balance 0 ml Sandra Simpson DO May 29, 2021 09:29
[2021-05-29 10:15] VITALS: BP 146/73
[2021-05-29 14:00] VITALS: BP 146/68
[2021-05-29 20:00] VITALS: BP 147/68
[2021-05-30] MEDS: SUCRALFATE SUSP 1GM/10ML UD NG SCH ×5 (00:24→22:40)
[2021-05-30] MEDS: PIPERACILLIN/TAZOBACTAM SOD 3.375 GM in D5W MINI-BAG PLUS 50 ML IV SCH ×4 (03:09→22:41)
[2021-05-30] MEDS: ONDANSETRON 4MG/2ML VIAL IV PRN (04:39)
[2021-05-30 06:42] VITALS: BP 149/69
[2021-05-30 07:12] LABS: HEMATOCRIT 32.7 % (36.0-47.0); MEAN CORPUSCULAR HEMOGLOBIN 30.4 pg (27.0-33.0); MEAN CORPUSCULAR HGB CONC 33.6 g/dl (32.0-36.5); MEAN CORPUSCULAR VOLUME 90.3 fl (80.0-96.0); PLATELET COUNT, AUTOMATED 387 10^3/uL (150-450); RED BLOOD COUNT 3.62 10^6/uL (4.00-5.40); WHITE BLOOD COUNT 10.1 10^3/uL (4.0-10.0)
[2021-05-30 08:06] LABS: ALT/SGPT 14 U/L (12-78); BILIRUBIN,TOTAL 0.6 MG/DL (0.2-1.0); BLOOD UREA NITROGEN 9 MG/DL (7-18); CALCIUM LEVEL 8.6 MG/DL (8.8-10.2); CARBON DIOXIDE LEVEL 22 MEQ/L (21-32); CHLORIDE LEVEL 105 MEQ/L (98-107); CREATININE FOR GFR 0.49 MG/DL (0.55-1.30); GLOMERULAR FILTRATION RATE > 60.0 (>45); GLUCOSE, FASTING 59 MG/DL (70-100); LIPASE 72 U/L (73-393); SODIUM LEVEL 139 MEQ/L (136-145); TOTAL PROTEIN 6.2 GM/DL (6.4-8.2)
[2021-05-30] MEDS: LR 1,000 ML IV SCH (08:31)
[2021-05-30] MEDS: PANTOPRAZOLE 40MG VIAL (C9113 PER 1) IV SCH ×2 (08:32→22:41)
[2021-05-30 09:00] VITALS: BP 150/70
--- NOTE | 2021-05-30 09:02 | IPNPDOC ---
Text Note Date of Service The patient was seen on 05/30/21. NOTE SUBJECTIVE: Patient is a 65 year old female presenting with perforated duodenal ulcer. Patient was seen today in no acute distress. She states that she is feeling much better; she has not needed any pain medication for her abdomen. She is complaining of some acid reflux symptoms. REVIEW OF SYSTEMS: General: denies fevers, chills HEENT: denies headaches Cardiovascular: denies chest pain Respiratory: denies shortness of breath, cough GI: +pain in abdomen : denies pain with urination Extremities: denies swelling in extremities PHYSICAL EXAM: Vitals: See below General: in no acute distress HEENT: NCAT; moist mucous membranes; NG tube in place NECK: supple CARDIAC: Regular rate and rhythm, S1 and S2; no murmurs appreciated LUNGS: CTA b/l; no wheezes, rhonchi, rales noted ABDOMEN: Soft, nondistended; less tenderness to soft palpation in all 4 quadrants especially epigastric area than yesterday EXTREMITIES: no pitting edema b/l lower extremities IMAGING: CT ab/pelvis 05/26: "1. Wall thickening of the 2nd and 3rd portions of the duodenum with surrounding inflammatory change and contiguous with a collection of fluid and gas, suggestive of contained perforation. 2. 4.2 cm hepatic lesion, possibly hemangioma, but indeterminate. Recommend further evaluation with liver MRI." ASSESSMENT/PLAN: Patient is a 65 year old female presenting with perforated duodenal ulcer. - downtrending WBC 12.4 -> 10.1 today; continue to monitor with labs; continue IV abx - continue pain control as needed - after upper GI series, will d/c NG tube and will start her on clear liquid diet - continue PPI and sucralfate VS,Fishbone, I+O VS, Fishbone, I+O Laboratory Tests 05/30/21 06:40 Vital Signs Date Time Temp Pulse Resp B/P (MAP) Pulse Ox O2 Delivery O2 Flow Rate FiO2 05/30/21 06:42 98.2 60 18 149/69 (95) 99 Room Air I&O- Last 24 Hours up to 6 AM 05/30/21 06:00 Intake Total 1000 ml Output Total 3450 ml Balance -2450 ml GME ATTESTATION GME ATTESTATION My faculty preceptor for this patient encounter was physically present during the encounter and was fully available. All aspects of the patient interview, examination, medical decision making process, and medical care plan development were reviewed and approved by the faculty preceptor. The faculty preceptor is aware and concurs with the plan as stated in the body of this note and will attest to such by his/her cosignature. Sandra Simpson DO May 30, 2021 09:02
[2021-05-30] MEDS ORDERED: GASTROGRAFIN SOLUTION 30ML (Q9963) As Ordered ONE ×2 (10:23→10:26)
[2021-05-30] MEDS: KCL 10MEQ/100ML SWI (KRUN) 10 MEQ in IV 1 EA IV SCH ×4 (11:00→13:00)
[2021-05-30 14:00] VITALS: BP 146/64
[2021-05-30] MEDS ORDERED: POTASSIUM CHLORIDE 10% LIQ 20 MEQ/15 ML UDC PO ONE (16:00)
--- NOTE | 2021-05-30 18:31 | REP ---
INDICATION: ? perforation sealed, please use ng tube. TECHNIQUE: This procedure was performed by ROSE MARY Cornejo, under the direct supervision of Dr. Calvillo. Images were reviewed with Dr. Calvillo prior to dictation. Gastrografin in a 50 50 solution of Gastrografin and water was instilled through the patient's nasogastric tube. This was sufficient to produce a single-contrast upper GI study FINDINGS: The bench chemist film shows no organomegaly or pathological masses. The side port of the nasogastric tube is in the distal esophagus. The intestinal gas pattern is unremarkable. The stomach vidal are normally outlined. The rugal folds are smooth and regular. There is no gastritis, neoplasm, or ulcerative disease. The duodenal vidal are normally outlined. There is thickening of the duodenal folds in the 1st and 2nd portion of the duodenum. No definite perforation or leak is visualized on this examination. The visualized portion of the proximal small bowel appears normal in course and caliber. IMPRESSION: The side port of the nasogastric tube is in the distal esophagus. The duodenal vidal are normally outlined. There is thickening of the duodenal folds in the 1st and 2nd portion of the duodenum. No definite perforation or leak is visualized on this examination. 0.8 minutes of fluoroscopy time was utilized for this procedure. Some fluoroscopic images are performed with last image hold technology. These images require no additional radiation. <Electronically signed by Dang Zuñiga > 05/30/21 1708 <Electronically signed by Shadi Calvillo > 05/30/21 9727
[2021-05-30 22:00] VITALS: BP 165/85
[2021-05-31 02:00] VITALS: BP 151/72
[2021-05-31] MEDS: PIPERACILLIN/TAZOBACTAM SOD 3.375 GM in D5W MINI-BAG PLUS 50 ML IV SCH ×4 (03:45→21:39)
[2021-05-31] MEDS: SUCRALFATE SUSP 1GM/10ML UD NG SCH ×3 (06:14→18:12)
[2021-05-31 06:38] VITALS: BP 123/66
[2021-05-31 06:44] LABS: HEMATOCRIT 34.1 % (36.0-47.0); HEMOGLOBIN 11.5 g/dl (12.0-15.5); MEAN CORPUSCULAR HEMOGLOBIN 30.5 pg (27.0-33.0); MEAN CORPUSCULAR HGB CONC 33.7 g/dl (32.0-36.5); MEAN CORPUSCULAR VOLUME 90.5 fl (80.0-96.0); PLATELET COUNT, AUTOMATED 442 10^3/uL (150-450); RED BLOOD COUNT 3.77 10^6/uL (4.00-5.40); WHITE BLOOD COUNT 14.2 10^3/uL (4.0-10.0)
[2021-05-31 07:20] LABS: ALBUMIN 2.3 GM/DL (3.2-5.2); ALT/SGPT 13 U/L (12-78); BILIRUBIN,TOTAL 0.7 MG/DL (0.2-1.0); BLOOD UREA NITROGEN 6 MG/DL (7-18); CALCIUM LEVEL 8.6 MG/DL (8.8-10.2); CARBON DIOXIDE LEVEL 24 MEQ/L (21-32); CHLORIDE LEVEL 107 MEQ/L (98-107); CREATININE FOR GFR 0.51 MG/DL (0.55-1.30); GLOMERULAR FILTRATION RATE > 60.0 (>45); GLUCOSE, FASTING 76 MG/DL (70-100); LIPASE 116 U/L (73-393); POTASSIUM SERUM 3.9 MEQ/L (3.5-5.1); SODIUM LEVEL 141 MEQ/L (136-145); TOTAL PROTEIN 5.8 GM/DL (6.4-8.2)
[2021-05-31] MEDS: PANTOPRAZOLE 40MG VIAL (C9113 PER 1) IV SCH ×2 (08:26→21:38)
--- NOTE | 2021-05-31 09:15 | IPNPDOC ---
Text Note Date of Service The patient was seen on 05/31/21. NOTE SUBJECTIVE: Patient is a 65 year old female presenting with perforated duodenal ulcer. Patient was seen today in no acute distress. She states that she is feeling much better and that she had bowel movements overnight; however, bowel movements were diarrhea. Her NG tube was discontinued yesterday and she was placed on clear liquids diet; is tolerating well. Has no other complaints. REVIEW OF SYSTEMS: General: denies fevers, chills HEENT: denies headaches Cardiovascular: denies chest pain Respiratory: denies shortness of breath, cough GI: decreasing abdominal pain : denies pain with urination Extremities: denies swelling in extremities PHYSICAL EXAM: Vitals: See below General: in no acute distress HEENT: NCAT; moist mucous membranes NECK: supple CARDIAC: Regular rate and rhythm, S1 and S2; no murmurs appreciated LUNGS: CTA b/l; no wheezes, rhonchi, rales noted ABDOMEN: Soft, nondistended; mild tenderness to palpation around umbilicus (improved from yesterday) EXTREMITIES: no pitting edema b/l lower extremities IMAGING: CT ab/pelvis 05/26: "1. Wall thickening of the 2nd and 3rd portions of the duodenum with surrounding inflammatory change and contiguous with a collection of fluid and gas, suggestive of contained perforation. 2. 4.2 cm hepatic lesion, possibly hemangioma, but indeterminate. Recommend further evaluation with liver MRI." ASSESSMENT/PLAN: Patient is a 65 year old female presenting with perforated duodenal ulcer. - WBC 12.4 -> 10.1 ->14.2 today; continue to monitor with labs; continue IV abx - continue pain control as needed - will advance her diet to full liquids diet - diarrhea likely due to Gastrografin or due to her not having bowel movements for the past couple of days; will monitor GME ATTESTATION My faculty preceptor for this patient encounter was physically present during the encounter and was fully available. All aspects of the patient interview, examination, medical decision making process, and medical care plan development were reviewed and approved by the faculty preceptor. The faculty preceptor is aware and concurs with the plan as stated in the body of this note and will a ttest to such by his/her cosignature. VS,Fishbone, I+O VS, Fishbone, I+O Laboratory Tests 05/31/21 05:51 Vital Signs Date Time Temp Pulse Resp B/P (MAP) Pulse Ox O2 Delivery O2 Flow Rate FiO2 05/31/21 06:38 98.3 62 18 123/66 (85) 96 Room Air I&O- Last 24 Hours up to 6 AM 05/31/21 06:00 Intake Total 1090 ml Output Total 1825 ml Balance -735 ml Sandra Simpson DO May 31, 2021 09:15
[2021-05-31 14:00] VITALS: BP 128/66
[2021-05-31 20:32] VITALS: BP 130/66
[2021-06-01] MEDS: SUCRALFATE SUSP 1GM/10ML UD NG SCH ×2 (00:38→06:16)
[2021-06-01] MEDS: PIPERACILLIN/TAZOBACTAM SOD 3.375 GM in D5W MINI-BAG PLUS 50 ML IV SCH ×2 (03:59→09:19)
[2021-06-01 05:54] VITALS: BP 123/64
[2021-06-01 07:34] LABS: HEMATOCRIT 33.3 % (36.0-47.0); HEMOGLOBIN 11.3 g/dl (12.0-15.5); MEAN CORPUSCULAR HEMOGLOBIN 30.4 pg (27.0-33.0); MEAN CORPUSCULAR HGB CONC 33.9 g/dl (32.0-36.5); MEAN CORPUSCULAR VOLUME 89.5 fl (80.0-96.0); PLATELET COUNT, AUTOMATED 441 10^3/uL (150-450); RED BLOOD COUNT 3.72 10^6/uL (4.00-5.40); WHITE BLOOD COUNT 8.8 10^3/uL (4.0-10.0)
[2021-06-01 07:55] LABS: ALBUMIN 2.2 GM/DL (3.2-5.2); ALT/SGPT 12 U/L (12-78); BILIRUBIN,TOTAL 0.5 MG/DL (0.2-1.0); BLOOD UREA NITROGEN 3 MG/DL (7-18); CALCIUM LEVEL 8.5 MG/DL (8.8-10.2); CARBON DIOXIDE LEVEL 29 MEQ/L (21-32); CHLORIDE LEVEL 104 MEQ/L (98-107); CREATININE FOR GFR 0.55 MG/DL (0.55-1.30); GLOMERULAR FILTRATION RATE > 60.0 (>45); GLUCOSE, FASTING 85 MG/DL (70-100); LIPASE 135 U/L (73-393); POTASSIUM SERUM 3.5 MEQ/L (3.5-5.1); SODIUM LEVEL 142 MEQ/L (136-145); TOTAL PROTEIN 5.6 GM/DL (6.4-8.2)
[2021-06-01] MEDS ORDERED: CARA1TAB6 PO (08:17)
[2021-06-01] MEDS ORDERED: AUGM875T28 PO (08:17)
[2021-06-01] MEDS ORDERED: OMEP40CA4 PO (08:17)
[2021-06-01] MEDS: PANTOPRAZOLE 40MG VIAL (C9113 PER 1) IV SCH (09:19)
--- NOTE | 2021-06-11 19:45 | DSES ---
DISCHARGE SUMMARY DATE OF ADMISSION: 05/26/2021 DATE OF DISCHARGE: 06/01/2021 PRINCIPAL DIAGNOSIS: Perforated duodenal ulcer. ASSOCIATED DIAGNOSES: 1. History of arthritis. 2. History of anxiety. 3. History of pulmonary nodule. 4. History of liver hemangioma. 5. History of carpal tunnel release. 6. History of tubal ligation. 7. History of hand surgery. BRIEF HISTORY OF PRESENT ILLNESS: The patient is a 65-year-old female who has at least 24-36 hours of mid epigastric pain radiating to her back. She went to the Emergency Department where she was revealed to have a perforation in the third portion of the duodenum adjacent to the pancreas, and this was a contained perforation. Given the location of the perforation and it being contained, she was kept n.p.o., NG tube in place and had significant improvement of her white count over the first 12 hours and subsequently continued to improve prior to discharge. Eventually she underwent an upper GI series that showed no leak and no evidence of perforation at this time and thus was started on a clear liquid diet and then advanced to a mechanical soft diet prior to discharge. DISCHARGE MEDICATIONS: She was discharged home on Omeprazole 40 mg p.o. twice daily and Carafate one p.o. four times daily as well as Augmentin 875 twice daily for 10 days. FOLLOW UP: She was instructed to follow up in my office in one week, sooner if there are any questions or concerns, fevers, chills, increasing pain or recurrence of her abdominal pain.
== END 2021-06-01 11:25 | disposition home or self-care (01) | DRG 241 ==
LOC: M ED 17:55 → M ED INP 05-26 11:07 → ENRESERV 05-26 12:25 → M MS5PR 05-26 13:29
PROVIDERS: ADMIT Surgery; ATTEND Surgery
DX: K26.5 Chronic or unspecified duodenal ulcer with perforation (principal); F41.9 Anxiety disorder, unspecified; M06.9 Rheumatoid arthritis, unspecified; R91.1 Solitary pulmonary nodule; Z91.030 Bee allergy status; Z20.822 Contact with and (suspected) exposure to COVID-19

== ENCOUNTER → 2021-08-07 | Outpatient (CLI) | payer OTHER ==
[~2021-08-07] MED LIST changes: +AUGM875T28 PO; +CARA1TAB6 PO; +OMEP40CA4 PO; +PROHANCE 279.3MG/ML 15ML VIAL As Ordered ONE
== END ==
LOC: M RAD 15:12
PROVIDERS: ATTEND Family Medicine
DX: D18.03 Hemangioma of intra-abdominal structures (principal); K76.9 Liver disease, unspecified
CPT/HCPCS: 74183; A9576

== ENCOUNTER → 2021-08-17 | Outpatient (CLI) | payer OTHER ==
[~2021-08-17] MED LIST changes: -PROHANCE 279.3MG/ML 15ML VIAL As Ordered ONE
== END ==
LOC: M LABSMTC 10:47
PROVIDERS: ATTEND Anesthesiology
DX: Z01.812 Encounter for preprocedural laboratory examination (principal); Z20.822 Contact with and (suspected) exposure to COVID-19

== ENCOUNTER 2021-08-22 12:29 | Day surgery (SDC) | payer OTHER ==
[~2021-08-22] VITALS: Ht 154.9 cm; Wt 48.1 kg
[~2021-08-22 12:29] MED LIST changes: +NS 1,000 ML IV ONE
[2021-08-22 14:19] VITALS: BP 168/76
== END 2021-08-22 14:50 | disposition home or self-care (01) ==
LOC: M OPP 12:29
PROVIDERS: ATTEND Surgery
DX: K26.3 Acute duodenal ulcer without hemorrhage or perforation (principal); K21.9 Gastro-esophageal reflux disease without esophagitis

== ENCOUNTER → 2021-09-16 | Outpatient (CLI) | payer OTHER ==
[~2021-09-16] MED LIST changes: -NS 1,000 ML IV ONE
== END ==
LOC: M RAD 15:40
PROVIDERS: ATTEND Family Medicine
DX: Z12.2 Encounter for screening for malignant neoplasm of respiratory organs (principal); R91.8 Other nonspecific abnormal finding of lung field; Z87.891 Personal history of nicotine dependence

== ENCOUNTER → 2022-05-12 | Outpatient (REF) | payer OTHER, MEDICARE ==
[2022-05-12 22:21] LABS: APPEARANCE, URINE MANUAL CLEAR (CLEAR); COLOR, URINE MANUAL YELLOW (YELLOW)
[2022-05-12 22:23] LABS: BILIRUBIN, URINE MANUAL NEGATIVE (NEGATIVE); BLOOD URINE MANUAL TRACE (NEGATIVE); GLUCOSE, URINE (UA) MANUAL NEGATIVE (NEGATIVE); KETONE, URINE MANUAL NEGATIVE (NEGATIVE); LEUKOCYTE ESTERASE, URINE MAN POSITIVE (NEGATIVE); NITRITE, URINE MANUAL NEGATIVE (NEGATIVE); PROTEIN, URINE MANUAL NEGATIVE (NEGATIVE); SPECIFIC GRAVITY,URINE MANUAL 1.025 (1.002-1.035); UROBILINOGEN, URINE MANUAL NORMAL (NORMAL)
[2022-05-12 22:32] LABS: CALCIUM OXALATE CRYSTALS,URINE SMALL AMOUNT /hpf; RBC, URINE 0-1 /hpf (0-3); SQUAMOUS EPITHELIAL CELL URINE SMALL AMOUNT /hpf (SMALL AMT); URIC ACID CRYSTALS, URINE MOD AMOUNT /hpf
[2022-05-12 22:33] LABS: BACTERIA, URINE NONE SEEN; HYALINE CAST, URINE NONE SEEN /lpf (0-1); MUCUS, URINE MOD AMOUNT (NEGATIVE)
== END ==
LOC: M LAB REF 22:05
PROVIDERS: ATTEND Physician Assistant Medical
DX: N39.0 Urinary tract infection, site not specified (principal)

== ENCOUNTER → 2023-03-18 | Outpatient (CLI) | payer MEDICARE | LOC: M RAD 15:23 | PROVIDERS: ATTEND Family Medicine | DX: Z12.2 Encounter for screening for malignant neoplasm of respiratory organs (principal); F17.218 Nicotine dependence, cigarettes, with other nicotine-induced disorders; R91.1 Solitary pulmonary nodule; I25.10 Atherosclerotic heart disease of native coronary artery without angina pectoris ==

== ENCOUNTER → 2023-08-10 | Outpatient (CLI) | payer MEDICARE ==
[2023-08-10 19:23] LABS: BLOOD UREA NITROGEN 23 MG/DL (9-23); CREATININE FOR GFR 0.72 MG/DL (0.55-1.30); GLOMERULAR FILTRATION RATE > 60.0 (>45)
== END ==
LOC: M PLALAB 15:14
PROVIDERS: ATTEND Student in an Organized Health Care Education/Training Program
DX: M47.892 Other spondylosis, cervical region (principal)

== ENCOUNTER → 2023-09-14 | Outpatient (CLI) | payer MEDICARE | LOC: M PLARAD 12:28 | PROVIDERS: ATTEND Student in an Organized Health Care Education/Training Program | DX: D38.3 Neoplasm of uncertain behavior of mediastinum (principal) | CPT/HCPCS: 78815; A9552 ==

== ENCOUNTER → 2024-10-17 | Outpatient (CLI) | payer MEDICARE | LOC: M RAD 06:26 | PROVIDERS: ATTEND Family Medicine | DX: Z12.2 Encounter for screening for malignant neoplasm of respiratory organs (principal); F17.211 Nicotine dependence, cigarettes, in remission ==